=== PATIENT | female | born 1955 | race Caucasian/White ===

== ENCOUNTER → 2017-09-13 | Outpatient (CLI) | payer SELFPAY ==
--- NOTE | 2017-09-13 17:39 | DIREP ---
PROCEDURE:XRAY HIP MIN 2VW-LT COMPARISON:None. INDICATIONS:M25.552 PAIN IN LEFT HIP FINDINGS: BONES:Normal. JOINTS:Normal. SOFT TISSUES:Normal. OTHER:No additional findings. CONCLUSION: 1. Normal left hip. Dictated by: Hayes Raymundo M.D. on 09/13/2017 at 05:37 PM
--- NOTE | 2017-09-13 17:40 | DIREP ---
PROCEDURE:XRAY SPINE CERVICAL COMP COMPARISON:None. INDICATIONS:M54.2 CERVICALGIA FINDINGS: ALIGNMENT:Normal. VERTEBRAE:Normal. DISK SPACES:Normal. CERVICAL RIBS:None. OTHER:Normal. CONCLUSION: 1. Normal cervical spine. Dictated by: Hayes Raymundo M.D. on 09/13/2017 at 05:38 PM
--- NOTE | 2017-09-13 17:40 | DIREP ---
PROCEDURE:XRAY SPINE THORACIC 3 VWS COMPARISON:None. INDICATIONS:M54.9 DORSALGIA TECHNIQUE:AP & lateral views of the thoracic spine and a swimmer's view of the cervicothoracic junction are provided. FINDINGS: ALIGNMENT:Mild levoscoliosis of the cervicothoracic junction. VERTEBRAE:Normal. DISK SPACES:Normal. OTHER:Normal. CONCLUSION: 1. Mild levoscoliosis of the cervicothoracic junction; otherwise normal thoracic spine. Dictated by: Hayes Raymundo M.D. on 09/13/2017 at 05:38 PM
--- NOTE | 2017-09-13 18:01 | DIREP ---
PROCEDURE:XRAY SPINE LUMBAR 2-3 VWS COMPARISON:None. INDICATIONS:M54.5 LOW BACK PAIN TECHNIQUE:AP & lateral views of the lumbar spine are provided. FINDINGS: ALIGNMENT:Normal. VERTEBRAE:Last rib-bearing vertebral body is presumed T12. Transitional lumbosacral vertebral body present which appears partially sacralized on the right. Multilevel ventral disc osteophyte complexes are present spanning L2-3 through L4-5. No compression fracture. DISK SPACES:Moderate disc space narrowing at L2-3. Mild disc space narrowing at remaining levels. Lower lumbar facet arthropathy. SPONDYLOLISTHESIS:None. SACROILIAC JOINTS:Mild sacroiliac joint degenerative changes. OTHER:Normal. CONCLUSION: 1. Multilevel lumbar spondylosis most pronounced at L2-3. 2. Transitional lumbosacral vertebral body. Dictated by: Ivan Cobian M.D. on 09/13/2017 at 05:45 PM
== END | disposition home or self-care (01) ==
LOC: RAD 15:44
PROVIDERS: ATTEND Nurse Practitioner Family
DX: M47.896 Other spondylosis, lumbar region (principal); M47.898 Other spondylosis, sacral and sacrococcygeal region; M48.061 Spinal stenosis, lumbar region without neurogenic claudication; M41.83 Other forms of scoliosis, cervicothoracic region; M12.88 Other specific arthropathies, not elsewhere classified, other specified site; M25.552 Pain in left hip; M54.2 Cervicalgia; E03.9 Hypothyroidism, unspecified
CPT/HCPCS: 72050; 72070; 72100; 73502

== ENCOUNTER → 2017-10-24 | Outpatient (CLI) | payer SELFPAY ==
--- NOTE | 2017-10-24 11:28 | DIREP ---
PROCEDURE:MRI SPINE LUMBAR W/O COMPARISON:None. 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 Images were performed without intravenous gadolinium contrast. FINDINGS: ALIGNMENT:Normal. VERTEBRA:No fracture, pars defect, or osseous lesion. CORD/CAUDA EQUINA:Normal size, contour, and signal intensity. PARASPINAL AREA:Normal with no visible mass. OTHER:None. LUMBAR DISC LEVELS T12-L1:No significant disc/facet abnormality, spinal stenosis, or foraminal stenosis. L1-L2:Mild circumferential disc bulge with mild spinal canal and moderate bilateral neural foraminal narrowing L2-L3:Minimal circumferential disc bulge and mild facet disease. Mild spinal canal bilateral neural foraminal narrowing. L3-L4:Moderate facet disease with circumferential disc bulge and more focal left foraminal disc protrusion. Mild spinal canal narrowing with moderate right and moderate to severe left neural foraminal narrowing. L4-L5:Moderate to advanced facet disease with circumferential disc bulge resulting in severe spinal canal narrowing and left neural foraminal narrowing. Moderate to severe right neural foraminal narrowing. L5-S1:Mild facet disease and minimal annular bulge posteriorly. No significant spinal canal narrowing or right neural foraminal narrowing. Moderate to severe left neural foraminal narrowing. CONCLUSION:Multilevel degenerative joint disease as described above. Worst level left L3-L4 and L4-L5. Dictated by: Amol Belle DO on 10/24/2017 at 11:24 AM
--- NOTE | 2017-10-24 11:31 | DIREP ---
PROCEDURE:MRI SPINE THORACIC W/O COMPARISON:None. INDICATIONS:BACK PAIN TECHNIQUE:A variety of imaging planes and parameters were utilized for visualization of suspected pathology. Images were performed without contrast. FINDINGS: SPINAL CORD/CONUS:Normal. ALIGNMENT:Mild S-shaped scoliosis, with dextro convexity most pronounced about the T7 vertebral body. Compensatory levoconvex curvature most pronounced about the T3 vertebral body. DISCS:Normal. VERTEBRAE:No acute fracture. PARASPINAL AREA:Large likely cyst within the dome of the right lobe of the liver. Dedicated follow-up recommended to confirm CONCLUSION: 1. S shaped scoliotic curvature, without significant disc bulge. No high-grade spinal canal or neural foraminal narrowing. 2. Large likely cyst in the dome of the right lobe of the liver measuring approximately 4.4 x 3.2 by 4.2 cm. Recommend dedicated follow-up to definitively characterize. Dictated by: Amol Belle DO on 10/24/2017 at 11:27 AM
== END | disposition home or self-care (01) ==
LOC: RAD 08:37
PROVIDERS: ATTEND Nurse Practitioner Family
DX: M47.896 Other spondylosis, lumbar region (principal); M48.061 Spinal stenosis, lumbar region without neurogenic claudication; M51.16 Intervertebral disc disorders with radiculopathy, lumbar region; M43.8X4 Other specified deforming dorsopathies, thoracic region; E03.9 Hypothyroidism, unspecified
CPT/HCPCS: 72146; 72148

== ENCOUNTER → 2017-10-31 | Outpatient (CLI) | payer SELFPAY ==
--- NOTE | 2017-10-31 11:07 | DIREP ---
PROCEDURE:US ABDOMEN LIMITED (SINGLE ORGAN - QUAD) COMPARISON:None. INDICATIONS:K76.89 DISEASE OF LIVER TECHNIQUE:High resolution sonographic examination was performed of the abdomen. FINDINGS: GALLBLADDER WALL:1.5 mm CBD:1.1 mm PANCREAS:Normal. LIVER:Normal size and echogenicity. No significant masses. A cyst is noted in the right hepatic lobe measuring 3.1 x 3.8 x 4.2 cm. BILIARY:Normal appearing gallbladder and biliary tree. RIGHT KIDNEY:Negative. OTHER:The spleen appears normal. CONCLUSION: 1. The gallbladder appears normal. 2. A cystic lesion consistent with a benign simple cyst is noted in the right hepatic lobe. Dictated by: Jarett Acosta M.D. on 10/31/2017 at 11:03 AM
== END | disposition home or self-care (01) ==
LOC: RAD 09:18
PROVIDERS: ATTEND Nurse Practitioner Family
DX: K76.89 Other specified diseases of liver (principal); I10 Essential (primary) hypertension; I25.10 Atherosclerotic heart disease of native coronary artery without angina pectoris; Z87.891 Personal history of nicotine dependence; Z90.49 Acquired absence of other specified parts of digestive tract
CPT/HCPCS: 76705

== ENCOUNTER → 2020-02-12 | Outpatient (CLI) | payer MEDICARE, OTHER ==
--- NOTE | 2020-02-12 13:21 | DIREP ---
PROCEDURE:BONE DENSITY PERIPHERAL COMPARISON:None. INDICATIONS:ASYMPTOMATIC POST MENOPAUSAL TECHNIQUE:A dual photon bone densitometry was performed in the lumbar spine and in both hips. FINDINGS:The bone density is measured from L1 through L4 is 1.079 grams/cm2. The standard deviation of the T-score is-0.9. The bone density in the left femoral neck is 0.963 grams/cm2. The standard deviation of the T-score is-0.5. The bone density in the right femoral neck is 0.906 grams/cm2. The standard deviation of the T-score is-1.0. Based upon these values the bone density is within normal limits. Based upon the values in the right hip, the 10 year FRAX probability is as follows: The patient has a 0.6% chance of a insufficiency hip fracture and a 8.3% chance of a major osteoporotic fracture. CONCLUSION:Normal bone densitometry. Ten year FRAX probability as above. Dictated by: Rajat Sultana MD on 02/12/2020 at 01:19 PM
--- NOTE | 2020-02-12 13:33 | DIREP ---
PROCEDURE:Digital Screening Mammogram TECHNIQUE:MLO and CC digital images of each breast are provided. Computer Assisted Detection (CAD) was utilized. COMPARISON:[facility], , DIGITAL MAMMOGRAM SCREENING OUTREACH, 04/01/2015, 11:42 AM. [facility], , DIAGNOSTIC RECALL UNILATERAL DIGITAL MAMMOGRAM, 04/01/2014, 12:59 PM. [facility], DIGITAL MAMMOGRAM SCREENING OUTREACH, 03/26/2014, 11:53 AM. [facility], , DIGITAL MAMMOGRAM SCREENING OUTREACH, 04/04/2016, 01:35 PM. INDICATIONS:SCREENING (patient reports new lump upper inner quadrant left breast) BREAST COMPOSITION:There are scattered areas of fibroglandular density. FINDINGS:There is no significant change as compared with the previous examination(s). IMPRESSION:No mammographic evidence of malignancy. RECOMMENDATIONS:Additional imaging evaluation is needed (special mammographic views). Although screening mammography is normal, additional evaluation is required due to the reported palpable finding(s) in the left breast. Our facility will contact the patient for follow-up imaging. OVERALL FINAL ASSESSMENT:BI-RADS 0S - Incomplete: Need Additional Imaging Evaluation Note: This facility participates in a mammography screening patient reminder system. Dictated by: Dorcas Latham MD on 02/12/2020 at 01:14 PM
== END | disposition home or self-care (01) ==
LOC: RAD 11:34
PROVIDERS: ATTEND Nurse Practitioner Family
DX: Z12.31 Encounter for screening mammogram for malignant neoplasm of breast (principal); Z13.820 Encounter for screening for osteoporosis; N64.89 Other specified disorders of breast; Z78.0 Asymptomatic menopausal state
CPT/HCPCS: 77067; 77080

== ENCOUNTER → 2020-02-19 | Outpatient (CLI) | payer MEDICARE, OTHER ==
--- NOTE | 2020-02-19 11:45 | DIREP ---
PROCEDURE:MAMMO UNILATERAL-LT COMPARISON:[facility], , US BREAST COMPLETE-LT, 02/19/2020, 11:[address] [facility], , MAMMO BILATERAL SCREENING, 02/12/2020, 12:27 PM. INDICATIONS:N63.20 LUMP IN THE LEFT BREAST DIAGNOSTIC MAMMOGRAM: Left views: MLO, CC, and spot compression magnification (CC and ML) Computer Assisted Detection (CAD) was utilized. Additional views show no mass to be present in the left breast. BREAST SONOGRAM:Sonography of the left breast and axilla was performed. No cysts or solid masses are demonstrated in the breast. The axilla appears unremarkable. IMPRESSION:No mammographic evidence of malignancy. RECOMMENDATIONS:Routine Screening Mammography per [employer] guidelines. OVERALL FINAL ASSESSMENT:BI-RADS 1 - Negative Mammogram Dictated by: Jeffery Teague M.D. on 02/19/2020 at 11:41 AM
--- NOTE | 2020-02-19 11:46 | DIREP ---
PROCEDURE:US BREAST-LT See separate diagnostic mammography report. Dictated by: Jeffery Teague M.D. on 02/19/2020 at 11:45 AM
== END | disposition home or self-care (01) ==
LOC: RAD 09:44
PROVIDERS: ATTEND Nurse Practitioner Family
DX: N63.20 Unspecified lump in the left breast, unspecified quadrant (principal); R92.8 Other abnormal and inconclusive findings on diagnostic imaging of breast
CPT/HCPCS: 76641

== ENCOUNTER → 2020-11-29 | Outpatient (CLI) | payer MEDICARE, OTHER ==
--- NOTE | 2020-11-29 11:46 | DIREP ---
PROCEDURE:XRAY SHOULDER MIN 2 VWS-RT COMPARISON:None. INDICATIONS:M25.511 PAIN IN TIGHT SHOULDER FINDINGS: BONES:No acute fracture. JOINTS:Normal glenohumeral and acromioclavicular joints. No evidence for dislocation. SOFT TISSUES:No suspicious abnormality. CONCLUSION:No acute osseous abnormality or significant degenerative changes of the right shoulder. Dictated by: Jean-Claude Webster M.D. on 11/29/2020 at 11:44 AM
== END | disposition home or self-care (01) ==
LOC: RAD 10:35
PROVIDERS: ATTEND Nurse Practitioner Family
DX: M25.511 Pain in right shoulder (principal)
CPT/HCPCS: 73030-RT

== ENCOUNTER → 2021-01-31 | Outpatient (CLI) | payer MEDICARE, OTHER ==
--- NOTE | 2021-01-31 11:14 | DIREP ---
PROCEDURE:MRI JOINT UPPER EXTREMITY-RT W/O COMPARISON:None. INDICATIONS:M25.511 PAIN IN RIGHT SHOULDER TECHNIQUE:A variety of imaging planes and parameters were utilized for visualization of suspected pathology. Images were performed without intravenous gadolinium contrast. FINDINGS: ROTATOR CUFF:Severe supraspinatus tendinosis with focal full-thickness anterior supraspinatus tendon insertion tear measuring 0.9 x 1.6 cm AP/medial-lateral dimension, partial-thickness tear is seen extending into the middle and posterior fibers of the supraspinatus tendon spanning approximately 50% tendon depth. Infraspinatus tendinosis. Teres minor tendons intact. Sub scapularis tendon completely disrupted with 1.4 cm tendon retraction. BICEPS TENDON:Severe biceps tendinosis with partial tear at the groove entrance. Severe tenosynovitis. MUSCLES:Muscles proportionate without atrophy. Interstitial edema in the subscapularis muscle. LIGAMENTS:Inferior glenohumeral ligament appears intact. Superior and middle glenohumeral ligaments not well assessed without arthrographic contrast. LABRUM:Fraying and/or degenerative tearing of the inferior labrum. Superior labrum intact. Anterior and posterior labrum intact. AC JOINT:AC joint arthrosis with mild undersurface spurring. No AC joint widening or clavicular offset. GLENOHUMERAL JT: Large glenohumeral joint effusion. Synovitis. Glenohumeral articular cartilage maintained. ACROMION:Type 1 acromion, no os acromiale. Acromiohumeral interval 9 mm. BONES:Marrow signal is age appropriate. No fracture or suspicious lesion. OTHER:Negative. CONCLUSION: 1. Full-thickness partial width supraspinatus tendon tear. 2. Complete subscapularis tendon tear. 3. Severe supraspinatus and infraspinatus tendinosis. 4. Severe biceps tendinosis with partial-thickness tear. 5. AC joint arthrosis with mild undersurface spurring. 6. Large glenohumeral joint effusion. Synovitis. Dictated by: Ivan Cobian M.D. on 01/31/2021 at 11:05 AM
== END | disposition home or self-care (01) ==
LOC: RAD 09:51
PROVIDERS: ATTEND Nurse Practitioner Family
DX: S46.211A Strain of muscle, fascia and tendon of other parts of biceps, right arm, initial encounter (principal); M75.121 Complete rotator cuff tear or rupture of right shoulder, not specified as traumatic; M25.411 Effusion, right shoulder; M77.8 Other enthesopathies, not elsewhere classified; M65.811 Other synovitis and tenosynovitis, right shoulder; X58.XXXA Exposure to other specified factors, initial encounter; Y93.89 Activity, other specified; Y92.89 Other specified places as the place of occurrence of the external cause; Y99.8 Other external cause status
CPT/HCPCS: 73221-RT

== ENCOUNTER → 2021-02-23 | Outpatient (CLI) | payer MEDICARE, OTHER ==
--- NOTE | 2021-02-23 14:41 | DIREP ---
PROCEDURE:Digital Screening Mammogram TECHNIQUE:MLO, CC, and XCCL digital images of each breast are provided. Computer Assisted Detection (CAD) was utilized. COMPARISON:[facility], MAMMO BILATERAL SCREENING, 02/12/2020, 12:27 PM. [facility], DIGITAL MAMMOGRAM SCREENING OUTREACH, 04/04/2016, 01:35 PM. [facility], DIGITAL MAMMOGRAM SCREENING OUTREACH, 04/01/2015, 11:42 AM. [facility], DIGITAL MAMMOGRAM SCREENING OUTREACH, 03/26/2014, 11:53 AM. [facility], DIGITAL MAMMOGRAM SCREENING OUTREACH, 02/13/2013, 01:59 PM. [facility], MAMMO DIAGNOSTIC LT, 02/19/2020, 10:41 AM. INDICATIONS:SCREENING BREAST COMPOSITION:Scattered areas fibroglandular density. FINDINGS:There are no grouped microcalcifications, masses, or architectural distortions to suggest malignancy. There is no significant change as compared with the previous examination(s). IMPRESSION:No mammographic evidence of malignancy. RECOMMENDATIONS:Routine Screening Mammography per [employer] guidelines. OVERALL FINAL ASSESSMENT:BI-RADS 1 - Negative Mammogram Note: This facility participates in a mammography screening patient reminder system. Dictated by: Jeffery Teague M.D. on 02/23/2021 at 02:37 PM
== END | disposition home or self-care (01) ==
LOC: RAD 12:59
PROVIDERS: ATTEND Nurse Practitioner Family
DX: Z12.31 Encounter for screening mammogram for malignant neoplasm of breast (principal)
CPT/HCPCS: 77067